=== PATIENT | female | born 1950 | race Caucasian/White ===

== ENCOUNTER → 2016-07-27 | Outpatient (CLI) | payer BC, OTHER ==
[~2016-07-27] MED LIST: CLB200 PO; HYDR-5688 PO; LEVO100T PO; LISI-461 PO; MULT-506 PO; OXYSR/20 PO; SNK PO; WARF4TAB PO
== END | disposition home or self-care (01) ==
LOC: C.LABSPEC 14:52
PROVIDERS: ATTEND Internal Medicine
DX: B34.9 Viral infection, unspecified (principal)

== ENCOUNTER → 2016-10-24 | Outpatient (CLI) | payer OTHER | LOC: C.PAPS 14:59 | PROVIDERS: ATTEND Internal Medicine | DX: Z01.419 Encounter for gynecological examination (general) (routine) without abnormal findings (principal) ==

== ENCOUNTER → 2016-10-26 | Outpatient (CLI) | payer OTHER ==
[2016-10-26 13:07] LABS: BASO % 0.3 %; BASO ABS # 0.02 K/uL (0-0.2); COMPLETE YES; EOS % 2.9 %; HEMATOCRIT 36.5 % (37-47); IG% 0.3 %; LYMPH % 18.6 %; LYMPH ABS # 1.17 K/uL (1.2-3.4); MEAN CELL VOLUME 88.6 fL (80-100); MEAN CORPUSCULAR HEMOGLOBIN 28.4 pg (25-34); MEAN CORPUSCULAR HGB CONC 32.1 g/dl (32-36); MEAN PLATELET VOLUME 9.5 fL (7.4-10.4); NEUT % 67.9 %; PLATELET COUNT 206 K/uL (130-400); RED BLOOD COUNT 4.12 M/uL (4.2-5.4); WHITE BLOOD COUNT 6.29 K/uL (4.8-10.8)
[2016-10-26 13:21] LABS: CALCIUM 9.3 mg/dl (8.5-10.1)
[2016-10-26 13:27] LABS: ALT/SGPT 25 U/L (12-78); BLOOD UREA NITROGEN 19 mg/dl (7-18); CARBON DIOXIDE 27 mmol/L (21-32); CHLORIDE 107 mmol/L (98-107); CHOLESTEROL 168 mg/dl (0-200); GLUCOSE 100 mg/dl (70-99); POTASSIUM 4.5 mmol/L (3.5-5.1); SODIUM 142 mmol/L (136-145); TRIGLYCERIDES 105 mg/dl (0-150); VERY LOW DENSITY LIPOPROT CALC 21 mg/dl
[2016-10-26 13:36] LABS: ALB/GLOB RATIO 0.9 (0.9-2); ALKALINE PHOSPHATASE 108 U/L (45-117); AST/SGOT 17 U/L (15-37); CHOLESTEROL/HDL RATIO 3.7; HDL CHOLESTEROL 46 mg/dl; THYROID STIMULATING HORMONE 0.422 uIu/ml (0.300-4.500)
== END | disposition home or self-care (01) ==
LOC: C.LABSPEC 12:39
PROVIDERS: ATTEND Internal Medicine
DX: Z00.01 Encounter for general adult medical examination with abnormal findings (principal); I10 Essential (primary) hypertension; E03.9 Hypothyroidism, unspecified; E66.01 Morbid (severe) obesity due to excess calories; Z11.59 Encounter for screening for other viral diseases

== ENCOUNTER → 2016-10-31 | Outpatient (CLI) | payer OTHER ==
--- NOTE | 2016-11-01 08:01 | MAMMOGRAPHY REPORT ---
BILATERAL DIGITAL SCREENING MAMMOGRAM TOMOSYNTHESIS WITH CAD: 10/31/2016 CLINICAL HISTORY: Routine screening. Patient has no complaints. TECHNIQUE: Breast tomosynthesis in addition to standard 2D mammography was performed. Current study was also evaluated with a Computer Aided Detection (CAD) system. COMPARISON: Comparison is made to exams dated: 10/17/2012 mammogram, 09/13/2011 mammogram, 09/09/2010 m ammogram, 09/08/2009 mammogram - [facility], 09/01/2008, and 08/30/2007. BREAST COMPOSITION: There are scattered areas of fibroglandular density in both breasts. FINDINGS: There is an oval, 7.6 x 10.0 x 6.9 mm lymph node in the upper outer posterior right breast that is slightly increased in size compared to prior mammograms. A few other plump lymph nodes are seen in both axillae, not definitely seen on prior exams. Further characterization with bilateral ax illary ultrasound is recommended. There are 2 stable metallic biopsy markers in the left upper outer quadrant. No other suspicious mas s, architectural distortion or cluster of microcalcifications is seen. IMPRESSION: ACR BI-RADS CATEGORY 0: INCOMPLETE EVALUATION: NEED ADDITIONAL IMAGING EVALUATION The prominent axillary tail and axillary lymph nodes need additional imaging evaluation. The patient will be called to schedule an appointment. Approximately 10% of breast cancers are not detected with mammography. A negative mammographic report should not delay biopsy if a clinically suggestive mass is present. Lurdes Nelson M.D. ay/:10/31/2016 16:38:29 Acoustic Intelligence Specialist: Karyna CASTILLO(R)(M), [facility] letter sent: Addl Imaging 0 BI-RADS Code: ACR BI-RADS Category 0: Incomplete Evaluation: Need Additional Imaging Evaluation
== END ==
LOC: C.MAMM 08:16
PROVIDERS: ATTEND Internal Medicine
DX: Z12.31 Encounter for screening mammogram for malignant neoplasm of breast (principal)

== ENCOUNTER → 2016-11-04 | Outpatient (CLI) | payer OTHER ==
--- NOTE | 2016-11-04 15:42 | MAMMOGRAPHY REPORT ---
ULTRASOUND OF BOTH BREASTS: 11/04/2016 CLINICAL HISTORY: Callback from screening mammogram for prominent axillary tail and axillary lymph no eliud. The patient denies any chronic infectious or inflammatory diseases or lymphoma. COMPARISON: Comparison is made to exams dated: 10/31/2016 mammogram, 10/17/2012 mammogram, 09/13/2011 m ammogram, 09/09/2010 mammogram, 09/08/2009 mammogram - [facility], and 09/01/2008. TECHNIQUE: Real-time targeted ultrasound of bilateral axillae were obtained. FINDINGS: Real-time, high resolution targeted ultrasound was performed of the right axilla and axillary tail. Multiple morphologically normal axillary lymph nodes are seen, which are normal oval in shape and hav e a normal fatty hilum and thin peripheral cortex. In the right breast at 3:00, approximately 15 cm from the nipple, low axillary region, there is a lymph node which is normal oval in shape and has a f atty hilum, with hypoechoic peripheral cortex at the upper limits of normal measuring 2.8 mm. The ly mph node measures 1.2 x 0.6 cm and correlates with the prominent axillary tail node seen mammographic ally. Targeted ultrasound of the left axilla also demonstrates multiple morphologically normal lymph nodes, one of which has cortical thickness at the upper limits of normal measuring 2.8 mm. The lymp h nodes are bilaterally symmetric and are probably benign. Given the slight increased prominence mamm ographically, a short interval follow-up is recommended. IMPRESSION: ACR-BI-RADS CATEGORY 3: PROBABLY BENIGN - FOLLOW-UP RECOMMENDED Bilateral axillary lymph nodes appear morphologically normal on ultrasound and are probably benign. Given the increased prominence mammographically, follow-up bilateral diagnostic mammograms and possib le ultrasound is recommended in 6 months to confirm stability. The patient was verbally notified of the results. Avelina Garcia M.D. /:11/04/2016 14:27:17 Silo Painter: Avelina Garcia MD, [facility] letter sent: Follow Up Recommended 3 BI-RADS Code: ACR-BI-RADS Category 3: Probably Benign
== END | disposition home or self-care (01) ==
LOC: C.MAMM 12:49
PROVIDERS: ATTEND Internal Medicine
DX: N64.89 Other specified disorders of breast (principal)

== ENCOUNTER → 2017-01-31 | Outpatient (CLI) | payer OTHER ==
[2017-01-31 16:44] LABS: THYROID STIMULATING HORMONE 0.114 uIu/ml (0.300-4.500)
== END | disposition home or self-care (01) ==
LOC: C.LABSPEC 14:58
PROVIDERS: ATTEND Internal Medicine
DX: E03.9 Hypothyroidism, unspecified (principal)

== ENCOUNTER → 2017-05-09 | Outpatient (CLI) | payer OTHER ==
--- NOTE | 2017-05-10 14:12 | MAMMOGRAPHY REPORT ---
BILATERAL DIGITAL DIAGNOSTIC MAMMOGRAM TOMOSYNTHESIS WITH CAD AND TARGETED BILATERAL ULTRASOUND: 04/21 CLINICAL HISTORY: 66-year-old woman presents for follow-up of bilateral axillary and intramammary lym ph nodes. The lymph nodes were noted to be slightly increased in prominence comparing to prior mammo grams but appear morphologically normal on targeted axillary ultrasound. TECHNIQUE: Bilateral breast tomosynthesis in addition to standard 2D mammography was performed. Curre nt study was also evaluated with a Computer Aided Detection (CAD) system. COMPARISON: Comparison is made to exams dated: 11/04/2016 ultrasound, 10/31/2016 mammogram, 10/17/2012 mammogram, 09/13/2011 mammogram, 09/09/2010 mammogram - [facility], and 09/01/2008. BREAST COMPOSITION: The tissue of both breasts is almost entirely fatty. FINDINGS: There are 2 stable metallic biopsy marker clips in the upper outer quadrant of the left layla ast. No new suspicious masses, asymmetries, areas of distortion or suspicious macrocalcifications ar e seen bilaterally in the breasts. Again noted is a slightly prominent lymph node with visible fatty hilum in the upper outer posterior right breast/axillary tail region, measuring 9.8 x 7.1 x 6.9 mm. This has not significantly changed in size or appearance comparing to the 10/31/[address] [facility] time it measured 10.0 x 7.5 x 8 mm. The other lymph nodes projecting over the pectoralis muscle s on the MLO views are not currently identified and therefore further evaluation with bilateral axill anthony ultrasound was performed. Targeted ultrasound was performed in each axilla. Several morphologically normal lymph nodes within cortices and echogenic fatty mandie identified in both the right and left axilla. In the 9:00 far late ral right breast a morphologically normal 7 mm lymph node is identified, thought to correlate with th e lymph node seen mammographically in the axillary tail. Currently there is no evidence of a suspici ous mass or suspicious lymph node in either the right or left axilla. Given the slight/subtle mammog raphic change of these lymph nodes, longer stability is needed and therefore another six-month follow -up bilateral diagnostic mammogram and axillary ultrasound is recommended. IMPRESSION: ACR-BI-RADS CATEGORY 3: PROBABLY BENIGN, TARGETED ULTRASOUND ACR-BI-RADS CATEGORY 3: PRO BABLY BENIGN 1. Bilateral axillary lymph nodes and a right axillary tail lymph node appear minimally increased in size mammographically comparing to more remote prior mammograms, but remain stable in size and visual appearance comparing to mammograms and ultrasound obtained 6 months ago. Differential consideration s include infectious, inflammatory, autoimmune or neoplastic processes. Given that they maintain nor mal morphology on ultrasound, they are probably benign and would recommend another short interval fol low-up bilateral diagnostic tomosynthesis mammogram and repeat targeted ultrasound to ensure stabilit y in 6 more months. Continued clinical follow-up is also recommended to assess for any possible infe ctious, inflammatory, autoimmune or neoplastic process to cause bilateral axillary adenopathy. 2. No significant interval change identified in the breast parenchyma, without suspicious abnormalit y seen in the breasts. These results and recommendations were discussed with the patient and her daughter at the time of the exam. Approximately 10% of breast cancers are not detected with mammography. A negative mammographic report should not delay biopsy if a clinically suggestive mass is present. Lurdes Nelson M.D. ay/:05/09/2017 15:56:12 Belt Line Feeder: Yesy Germain, [facility] letter sent: Follow Up Recommended 3 BI-RADS Code: ACR-BI-RADS Category 3: Probably Benign Ultrasound BI-RADS: ACR-BI-RADS Category 3: Pr obably Benign
== END | disposition home or self-care (01) ==
LOC: C.MAMM 10:51
PROVIDERS: ATTEND Internal Medicine
DX: Z09 Encounter for follow-up examination after completed treatment for conditions other than malignant neoplasm (principal); R92.8 Other abnormal and inconclusive findings on diagnostic imaging of breast